=== PATIENT | female | born 1985 | race Caucasian/White ===

== ENCOUNTER 2016-05-02 07:45 | Inpatient (IN) | payer SELFPAY ==
[2016-05-02] MEDS ORDERED: NORMAL SALINE 10 ML SYRINGE FLUSH IVP PRN ×2 (08:01→13:35)
[2016-05-02] MEDS ORDERED: ONDANSETRON 4 MG/2 ML VIAL IVP ONE ×3 (08:01→09:54)
[2016-05-02] MEDS: Sodium Chloride 0.9% 1,000 ML PRIMARY IV ONE ×2 (08:07→12:08)
[2016-05-02] MEDS: HYDROmorphone 2 MG/1 ML IVP ONE ×4 (08:08→12:02)
[2016-05-02 08:19] LABS: BASOPHILS # (AUTO) 0.02 10*3/UL; BASOPHILS % (AUTO) 0.3 % (0-1); EOSINOPHILS % (AUTO) 0.8 % (0-8); HEMATOCRIT 47.1 % (37.0-47.0); HEMOGLOBIN 16.7 g/dL (12.0-16.0); IMM GRAN % (AUTO) 0.3 % (0-5); IMM GRAN# (AUTO) 0.02 10*3/UL; LYMPHOCYTES % (AUTO) 34.2 % (10-50); MEAN CORPUSCULAR HEMOGLOBIN 31.6 PG (27-31); MEAN CORPUSCULAR HGB CONC 35.5 g/dL (33-37); MEAN PLATELET VOLUME 10.5 FL (7.4-12.2); MONOCYTES # (AUTO) 0.56 10*3/UL (0.3-0.8); MONOCYTES % (AUTO) 9.1 % (5-15); NEUTROPHILS # (AUTO) 3.39 10*3/UL; NEUTROPHILS % (AUTO) 55.3 % (50-80); RDW COEFFICIENT OF VARIATION 12.9 % (11.5-14.5); RED BLOOD COUNT 5.29 10^6/uL (4.20-5.40); WHITE BLOOD COUNT 6.14 10^3/uL (4.8-10.8)
[2016-05-02 08:24] LABS: PLATELET MORPHOLOGY COMMENT NORMAL MORPHOLOGY (NORM)
[2016-05-02 08:27] LABS: AMYLASE 117 U/L (30-110); ASPARTATE AMINO TRANSFERASE 25 IU/L (8-39); BILIRUBIN,TOTAL 1.3 mg/dL (0.3-1.2); BLOOD UREA NITROGEN 14 mg/dL (7-22); CHLORIDE 102 meq/L (98-112); EST GLOMERULAR FILTRATION > 60 (>60 ml/min/1.73m(2)); GLUCOSE 151 mg/dL (78-110); SODIUM 139 meq/L (135-145)
--- NOTE | 2016-05-02 08:46 | PDOC ---
Abdomen/Flank HPI - General Chief Complaint: Abdomen Pain Stated Complaint: ABDOMINAL PAIN Date Seen by Provider: 05/02/16 Time Seen by Provider: 07:55 Source: POSITIVE: Patient Exam Limitations: POSITIVE: No limitations Nurse's Notes Reviewed & Considered: Yes - History of Present Illness Initial Comments: The patient is a 31-year-old female. She states that approximately 24 hours ago she developed some discomfort in the right lower quadrant. This pain became abruptly worse approximately one hour [employer]ING [employer]MENT. Patient had one episode of vomiting. She's had no known fevers. No diarrhea, melena, hematochezia, hematemesis, dysuria or hematuria. No history of previous abdominal surgery. Body Location Affected: REPORTS: Abdomen Timing: REPORTS: Abrupt (Abruptly worse in the past hour. Some discomfort for the past 24 hours.) Duration: 1 hour (As above) Severity: Severe Quality: REPORTS: "Pain" Abdominal Pain Onset Location: REPORTS: RLQ Abdominal Pain Radiation: REPORTS: No radiation Context: REPORTS: None Modifying Factors: improves with: Vomiting (Times one) Associated Symptoms: REPORTS: Nausea, Vomiting (Times one). DENIES: Denies symptoms, Back pain, Bloody Emesis, Chest pain, Coffee Grounds Emesis, Chills, Diaphoresis, Fever, Fatigue, Headache, Heartburn, Loss of Appetite, Rash, Shortness of breath, Swelling/mass in abdomen, Syncope, Testicular Pain, Weakness, Grossly Bloody Diarrhea, Constipation, Diarrhea, Dysuria, Incontinent Stool, Incontinent Urine, Mucous Diarrhea, Difficulty Walking, Dizziness, Light Headedness, Numbness, Other Similar Symptoms Previously: No Recent Care Received: REPORTS: Denies Any Prior Injuries Related to Current Complaint?: No - Patient Home Medications Home Medications: Home Medications NK [No Home Medications Reported] 05/02/16 - Patient Allergies Allergies/Adverse Reactions: Allergies Allergy/AdvReac Type Severity Reaction Status Date / Time hydrocodone AdvReac VOMITING Verified 05/02/16 07:51 Past Medical History - heen HEENT History: Denies History Cardiovascular History: Denies History Respiratory History: Denies History Gastrointestinal History: Denies History Genitourinary History: Denies History Endocrine History: Denies History Musculoskeletal History: Denies History Prosthesis or Implant: No Neurological History: Denies History Blood Disorders: Denies History Psychiatric History: Denies History History of Sexually Transmitted Diseases: No Female Reproductive History: Denies History LMP: 04/04/15 Obstetrical History: Denies History In Past Year Been Physically Harmed or Verbally Threatened: No History of MDRO: No History of Other Communicable Diseases: No Tobacco Use: Never Smoker Alcohol Use: Occasionally Substance Use Type: None Previous Surgical History: No Past Medical History Reviewed: Reviewed - No Changes ROS - Limitations ROS Limitations: No Limitations Constitution: REPORTS: Denies Symptoms Cardiovascular: REPORTS: Denies Cardiac Symptoms Respiratory: REPORTS: Denies Resp Symptoms Neurological: REPORTS: Denies Neuro Symptoms Gastrointestinal: REPORTS: Abdominal Pain, Nausea, Vomitting Endocrine: REPORTS: Denies Symptoms Musculoskeletal: REPORTS: Denies MS Symptoms Genitourinary: REPORTS: Denies Symptoms Eyes: REPORTS: Denies Symptoms ENT: REPORTS: Denies Symptoms Skin: REPORTS: Denies Skin Symptoms Lympathic: REPORTS: Denies Lympathic Symptoms Immunologic: POSITIVE: Denies Symptoms Psychiatric: POSITIVE: Denies Psych Symptoms Abdominal/Flank Pain PE - General Appearance General Appearance: POSITIVE: Alert, Cooperative, No Evidence of Trauma, Moderate Distress. NEGATIVE: No Acute Distress - HEENT HEENT: POSITIVE: Head Inspection Nml, Eyes Inspection Nml, Ears Inspection Nml, Nose Inspection Nml, Oral/Dental Inspect. Nml, Pharynx Inspect. Nml, PERRL, EOMI - Neck Neck: POSITIVE: Normal Inspection, No Apparent Injury - Respiratory Respiratory: POSITIVE: No Respiratory Distress, Breath Sounds Normal, Chest Non- Tender - Cardiovascular Cardiovascular: POSITIVE: Regular Rate and Rhythm, Heart Sounds Normal, Equal Pulses, Strong Pulses Peripheral Pulses: Radial (R): 2+, Radial (L): 2+ - Chest Chest: POSITIVE: Non Tender - Abdomen Abdomen: Soft: (All Quadrants), Normal Bowel Sounds: (All Quadrants), Denies Tenderness: (LLQ), (LUQ), (RUQ), No Splenomegaly: (All Quadrants), No Hepatomegaly: (All Quadrants), No Guarding: (All Quadrants), No Rebound: (All Quadrants), No Palpable Pulse: (All Quadrants), No Palpabale Mass: (All Quadrants), No Distention: (All Quadrants), No Rigidity: (All Quadrants), Tenderness Noted: (RLQ) - Back Back: POSITIVE: Normal Inspection - Skin Skin: POSITIVE: Intact, Normal For Race, Warm, Dry, No Rash - Extremities Extremity: Non-Tender: (All Extremities), Normal ROM: (All Extremities), Normal Inspection: (All Extremities) - Neurological Neurological: POSITIVE: Oriented X3, local coordinator Normal As Tested, Motor Normal, Sensation Normal, 5, 6 - Psychological Psychiatric: POSITIVE: Affect Appropriate, Mood Appropriate Images - Complete Complete: 1 - Area of pain Abdomen Progress - Results Reviewed by me Radiology Findings: CT scan abdomen and pelvis in progress Lab Results Reviewed: Yes (urinalysis pending) Lab Results:: Laboratory Results 05/02/16 Range/Units 08:07 WBC 6.14 (4.8-10.8) 10^3/uL RBC 5.29 (4.20-5.40) 10^6/uL Hgb 16.7 H (12.0-16.0) g/dL Hct 47.1 H (37.0-47.0) % MCV 89.0 (81-99) FL MCH 31.6 H (27-31) PG MCHC 35.5 (33-37) g/dL RDW Std Deviation 41.9 (39-50) fL RDW Coeff of Vasu 12.9 (11.5-14.5) % Plt Count 249 (140-350) 10*3/uL MPV 10.5 (7.4-12.2) FL Immature Gran % (Auto) 0.3 (0-5) % Neut % (Auto) 55.3 (50-80) % Lymph % (Auto) 34.2 (10-50) % Sharp % (Auto) 9.1 (5-15) % Eos % (Auto) 0.8 (0-8) % Baso % (Auto) 0.3 (0-1) % Immature Gran # (Auto) 0.02 10*3/UL Neut # (Auto) 3.39 10*3/UL Lymph # (Auto) 2.10 10*3/uL Sharp # (Auto) 0.56 (0.3-0.8) 10*3/UL Eos # (Auto) 0.05 10*3/UL Baso # (Auto) 0.02 10*3/UL WBC Morphology Comment Normal morphology (NORM) Plt Morphology Comment Normal morphology (NORM) RBC Morph Comment Normal morphology (NORM) Sodium 139 (135-145) meq/L Potassium 4.0 (3.8-5.2) meq/L Chloride 102 (98-112) meq/L Carbon Dioxide 23 (23-33) meq/L Anion Gap 14 (5-20) BUN 14 (7-22) mg/dL Creatinine 1.0 (0.50-1.20) mg/dL Estimated GFR > 60 (>60 ml/min/1.73m(2)) BUN/Creatinine Ratio 14.00 (6-20) Glucose 151 H (78-110) mg/dL Calculated Osmolality 291.0 (267-292) mOsm/kg Calcium 10.0 (8.7-10.7) mg/dL Total Bilirubin 1.3 H (0.3-1.2) mg/dL AST 25 (8-39) IU/L ALT 24 (9-52) IU/L Alkaline Phosphatase 70 (38-126) IU/L Total Protein 8.0 (6.1-8.0) g/dL Albumin 5.0 H (3.5-4.8) g/dL Globulin 3.0 (2.50-4.10) g/dL Albumin/Globulin Ratio 1.60 (1.3-2.0) mg/g Amylase 117 H (30-110) U/L Lipase 240 (23-300) IU/L Serum HCG, Qual Negative - Patient's Progress Pain Medication Addressed: POSITIVE: Yes (Patient given Dilaudid, 2 mg IV, with good pain relief) School/Work Release Addressed: POSITIVE: Not Applicable Re-examine Time: 08:45 Re-Examine Comment: Care transferred to , ER physician coming on duty. Status: POSITIVE: Improved, Worsened - Consult Counseled: POSITIVE: Patient, RE: Lab Results Patient Care Time - Estimated PCT Patient Care Time (In Minutes): 33 Vital Signs - Recent Vital Signs Vital Signs: Vital Signs (Last 8 hours) Temp Pulse Resp BP Pulse Ox 05/02/16 07:51 96.7 F L 62 12 134/93 99 - VS Reviewed Vital Signs Reviewed: Yes Discharge Clinical Impression: Abdominal pain Discharge Disposition: Other (Care transferred to Dr. Lara, ER physician coming on duty) Condition: Stable Care Transferred To: Dr. Lara, ER physician, [id number]
[2016-05-02] MEDS ORDERED: KETOROLAC 30 MG/1 ML VIAL IVP ONE (09:02)
--- NOTE | 2016-05-02 09:09 | PDOC ---
Transfer of Care - Care Accepted Time Care Transferred: 09:04 Report from Transferring Physician Received: Yes MDM / ED Course: Patient was evaluated, CT scan was ordered, and she received Dilaudid for pain which did improve somewhat. Review of her labs show urinalysis is still pending , CT report is pending, CBC is unremarkable, comprehensive metabolic panel was unremarkable. Home Medications: Home Medications NK [No Home Medications Reported] 05/02/16 Allergies/Adverse Reactions: Allergies hydrocodone Adverse Reaction (Verified 05/03/16 07:09) VOMITING Vital Signs Reviewed: Yes Nurse's Notes Reviewed & Considered: Yes - Pending Patient Care Items Pending Patient Care Items: POSITIVE: Labs, Pain Control, CT / MRI Results - Expected Patient Outcome Tentative Impression of Patient: Abdominal pain, differential diagnosis includes ovarian etiology, appendicitis, renal stones. Expected Disposition: POSITIVE: Home - Re-Evaluation of Patient Disposition of Patient: POSITIVE: Admitted Counseled: POSITIVE: Patient, RE: Lab Results, RE: Radiology Results, RE: DX Pending Test Results Documented: Yes Clinical Impression Documented: Yes (Abd pain, possible leuteal cyst.) - Results Reviewed Lab Results Reviewed by Me: Yes Lab Results: Laboratory Results 05/02/16 05/02/16 Range/Units 08:02 08:07 WBC 6.14 (4.8-10.8) 10^3/uL RBC 5.29 (4.20-5.40) 10^6/uL Hgb 16.7 H (12.0-16.0) g/dL Hct 47.1 H (37.0-47.0) % MCV 89.0 (81-99) FL MCH 31.6 H (27-31) PG MCHC 35.5 (33-37) g/dL RDW Std Deviation 41.9 (39-50) fL RDW Coeff of Vasu 12.9 (11.5-14.5) % Plt Count 249 (140-350) 10*3/uL MPV 10.5 (7.4-12.2) FL Immature Gran % (Auto) 0.3 (0-5) % Neut % (Auto) 55.3 (50-80) % Lymph % (Auto) 34.2 (10-50) % [place] % (Auto) 9.1 (5-15) % Eos % (Auto) 0.8 (0-8) % Baso % (Auto) 0.3 (0-1) % Immature Gran # (Auto) 0.02 10*3/UL Neut # (Auto) 3.39 10*3/UL Lymph # (Auto) 2.10 10*3/uL [place] # (Auto) 0.56 (0.3-0.8) 10*3/UL Eos # (Auto) 0.05 10*3/UL Baso # (Auto) 0.02 10*3/UL WBC Morphology Comment Normal morphology (NORM) Plt Morphology Comment Normal morphology (NORM) RBC Morph Comment Normal morphology (NORM) Sodium 139 (135-145) meq/L Potassium 4.0 (3.8-5.2) meq/L Chloride 102 (98-112) meq/L Carbon Dioxide 23 (23-33) meq/L Anion Gap 14 (5-20) BUN 14 (7-22) mg/dL Creatinine 1.0 (0.50-1.20) mg/dL Estimated GFR > 60 (>60 ml/min/1.73m(2)) BUN/Creatinine Ratio 14.00 (6-20) Glucose 151 H (78-110) mg/dL Calculated Osmolality 291.0 (267-292) mOsm/kg Calcium 10.0 (8.7-10.7) mg/dL Total Bilirubin 1.3 H (0.3-1.2) mg/dL AST 25 (8-39) IU/L ALT 24 (9-52) IU/L Alkaline Phosphatase 70 (38-126) IU/L Total Protein 8.0 (6.1-8.0) g/dL Albumin 5.0 H (3.5-4.8) g/dL Globulin 3.0 (2.50-4.10) g/dL Albumin/Globulin Ratio 1.60 (1.3-2.0) mg/g Amylase 117 H (30-110) U/L Lipase 240 (23-300) IU/L Serum HCG, Qual Negative Ur Collection Type Clean catch urine Urine Color Yellow Urine Clarity Clear (CLEAR) Urine pH 6.5 (5.0-8.5) Ur Specific [place] <=1.005 (1.005-1.030) Urine Protein Negative (NEG) mg/dl Urine Glucose (UA) Negative (NEG) mg/dL Urine Ketones 15 (NEG) Urine Occult Blood Negative (NEG) Urine Nitrate Negative (NEG) Urine Bilirubin Negative (NEG) Urine Urobilinogen 0.2 (0.2) EU/dL Ur Leukocyte Esterase Negative (NEG) Ur Culture Indicated? Culture not set - Consult Consult (If Yes, Name of Consulting MD & Time Called): Yes (Dr Mansfield, 12:15) Recommendations:: Admission. Patient Care Time - Estimated PCT Patient Care Time (In Minutes): 30 Vital Signs - VS Reviewed Vital Signs Reviewed: Yes Discharge Clinical Impression: Abdominal pain Discharge Disposition: Admit to Observation Condition: Stable Date Decision to Admit to Inpatient: 05/02/16 Time Decision to Admit to Inpatient: 12:16 (Dr. Mansfield admitting.)
--- NOTE | 2016-05-02 09:41 | DI ---
HISTORY: Sudden onset, severe right lower quadrant pain. COMPARISON: None available. TECHNIQUE: Contiguous axial images of the abdomen and pelvis were obtained and submitted for interpr etation. FINDINGS: Limited sections of the lung bases demonstrate no focal pulmonary mass. The liver, spleen, pancreas, gallbladder, both kidneys, and both adrenal glands demonstrate no acute findings. There is mild thickening of the GE junction. The stomach is partially collapsed. The aorta and IVC demonstrate no acute findings. The small bowel loops are not dilated. There is segmental thickening of the sigmoid colon which is f avored to be due to a phase of peristalsis although correlation with colonoscopy is recommended where appropriate. There is moderate constipation. There is no obstruction. There is no free air or tamela e fluid. The urinary bladder is partially distended. The uterus is anteverted, and the endometrium is thicken ed. There is a cystic hypodensity at the cervix measuring approximately 1.3 cm that would benefit from OB /CLEAT MAKER correlation. There are ill-defined opacities noted in both, cystic-appearing in nature, and measuring up to 5.3 cm on the right. These are favored to be ovarian in etiology, and correlation pelvic ultrasound is rec ommended. Tubo-ovarian abscesses and salpingitis in the differential. The appendix is not clearly visualized. The visualized osseous structures demonstrate no destructive abnormality. There are bilateral pars d efects at L5 without significant anterolisthesis. IMPRESSION: 1. There is mild thickening of the GE junction. The stomach is partially collapsed. 2. There is segmental thickening of the sigmoid colon which is favored to be due to a phase of perist alsis although correlation with colonoscopy is recommended where appropriate. There is moderate cons tipation. 3. The urinary bladder is partially distended. The uterus is anteverted, and the endometrium is thic kened. 4. There is a cystic hypodensity at the cervix measuring approximately 1.3 cm that would benefit from HYBRID TECHNOLOGIST correlation. 5. Ill-defined opacities are noted in both, cystic-appearing in nature, and measuring up to 5.3 cm on the right. These are favored to be ovarian in etiology, and correlation pelvic ultrasound is recomm ended. Tubo-ovarian abscesses and salpingitis is in the differential. 6. Bilateral pars defects at L5 without significant anterolisthesis.
[2016-05-02 11:26] LABS: BILIRUBIN,URINE NEGATIVE (NEG); CLARITY,URINE CLEAR (CLEAR); GLUCOSE, URINE (UA) NEGATIVE (NEG); LEUKOCYTE ESTERASE ,URINE NEGATIVE (NEG); NITRATE,URINE NEGATIVE (NEG); OCCULT BLOOD,URINE NEGATIVE (NEG); PH,URINE 6.5 (5.0-8.5); PROTEIN,URINE NEGATIVE (NEG); UROBILINOGEN,URINE 0.2 EU/dL (0.2)
[2016-05-02 11:28] LABS: URINE SAMPLE TYPE CLEAN CATCH URINE
--- NOTE | 2016-05-02 11:36 | DI ---
HISTORY: Right lower quadrant pain; onset 2 days prior. COMPARISON: None available. TECHNIQUE: Sonographic images of the pelvis were obtained and submitted for interpretation. 92 imag es. FINDINGS: The uterus measures 7.7 x 3.3 x 3.2 cm. The right ovary measures 7.8 x 3.9 x 6.0 cm. The left ovary measures 3.7 x 2.8 x 3.2 cm. The endometrium measures 4 mm in thickness. Normal arterial waveforms are noted in both ovaries. There is a small amount of free fluid noted. The uterus is anteverted. IMPRESSION: 1. The right ovary is enlarged. However, normal vascularity is present. NOTIFICATION: The above findings were phoned to Reji in the ER Department on 05/02/2016 at 01:39 PM EST. NOTE: The interpreting Radiologist was not present at the time of ultrasound interrogation.
--- NOTE | 2016-05-02 13:47 | PDOC ---
History and Physical - History of Present Illness History of Present Illness: 31 yo G0 presented to the ER this morning with acute RLQ abdominal pain. She states she had an episode last night night that got better, then started again this morning. Associated vomiting. Pain constant, stabbing. 12/28. Had an episode similar to this about a month ago, was seen by Dr. Avila (chiropractor) and treated for ileocecal dysfunction - b12, supplement and strict diet. This may have helped some. She notes some chills but denies fever, headache, vision changes, shortness of breath, palpitations, rash, dysuria, increased frequency. Has had diarrhea for a few days with restrictive diet. No constipation. Denies vaginal discharge or odor. Notes some vaginal pruritis - states very sensitive to soaps. Decreased appetite - ate cottage cheese and apple sauce yesterday, nothing today. LMP 04/04. Menses relatively regular, within 1-2 weeks. No history of significant dysmenorrhea. History of chlamydia infection 3 years ago at time of divorce, never tested for cure. No history of abdominal surgery. Treatment in ER included 4mg zofran total, 8 mg zofran IV, toradol 30mg IV, [address] done initially showed cystic hypodensity of cervix 1.3 cm, 5.3 cm cystic mass in RLQ concerning for TOA vs salpingitis. Appendix not well visualized. U/ s showed enlarged R ovary 7.8 x 3.9x6.0 cm with normal flow. WBC normal, CMP normal with mildly elevated bili, amylase. HCG negative. UA normal. Past Medical History Medical History: Hospitalized at 21 yo for PTSD, was treated with a sleeping medication and exercise. Chlamydia infection 3 years ago Surgical History: [place] teeth extraction Pertinent Family History: Father - DM, pancreatic cancer, HTN. Mother - HTN. Sister - RA, PCOS. Sister - ovarian cysts Past Social History: Occ etoh use, denies illicit drug use. Moved here from [place] recently, living with her sister and sister's family. Worked at a [employer] previously. Tobacco Use: Never Smoker Substance Use Type: None Alcohol Use: Occasionally Medication / Allergies Home Medications: Home Medications Medication Instructions Recorded Confirmed Type NK [No Home Medications Reported] 05/02/16 05/02/16 History Allergies/Adverse Reactions: Allergies Allergy/AdvReac Type Severity Reaction Status Date / Time hydrocodone AdvReac VOMITING Verified 05/02/16 13:53 Review of Systems - Review of Systems All Systems: Reviewed & No Additional Complaints Except as Stated - Constitutional Constitutional: REPORTS: General Health Excellent. DENIES: Fever/Chills, Diffuse Arthralgias - Integumentary Integumentary: DENIES: Rash - Eye Exam Eye Exam: DENIES: Blurring - Ear/Nose Exam Ear/Nose Exam: DENIES: Sinus Pain, Rhinorrhea, Congestion - Mouth/Throat Mouth/Throat Exam: DENIES: Sore Throat - Respiratory Respiratory: DENIES: Cough, Wheezing - Cardiovascular Cardiovascular: DENIES: Chest Pain, Palpitations - Gastrointestinal Gastrointestinal / Abdominal: REPORTS: Nausea, Vomiting, Diarrhea, Abdominal Pain. DENIES: Constipation - Genitourinary Genitourinary: DENIES: Burning, Urgency - Gynecological Gynecological: REPORTS: Pelvic Pain. DENIES: Vaginal Bleeding, Vaginal Discharge - Neurological Neurologic: DENIES: Headache, Weakness Exam - General General Appearance: POSITIVE: Cooperative, Mild Distress, Thin - Head Head Exam: POSITIVE: Normal Inspection - Eye Eye Exam: POSITIVE: Normal Appearance, EOMI, No Scleral Icterus. NEGATIVE: Conjuctival Injection - ENT ENT Exam: POSITIVE: Normal Exam, Mucous Membranes Moist - Respiratory Respiratory Exam: POSITIVE: Clear to Auscultation - Bilaterally, Breathing Non Labored - Cardiovascular Cardiovascular Exam: POSITIVE: RRR, No Murmur, No Clicks - GI/Abdominal GI/Abdominal Exam: POSITIVE: Soft, Guarding (off and on), Hypoactive Bowel Sounds. NEGATIVE: Rebound Additional GI/Abdominal Exam Details: TTP in RLQ, suprapubic - Extremities Extremities Exam: POSITIVE: Normal Inspection, Normal Capillary Refill, No Edema Present - Neurological Neurological Exam: POSITIVE: Alert, Oriented x 3 - Integumentary Integumentary Exam: POSITIVE: Normal Color Results - Labs CBC and BMP: 05/02/16 08:07 05/02/16 08:07 - Imaging Additional Imaging Details: CT abdomen/pelvis with contrast: 1. Mild thichening of GE jtn, stomach partially collapsed. 2. Segmental thickening of the sigmoid colon which is favored to be due to a phase of peristalsis although correlation with colonoscopy where appropriate. Mild constipatione. 3. Uterus anteverted and endometrium thickened. 4. cystic hypodensity at the cervix measuring 1.3 cm 5. ill-defined opacities, cystic in nature measuring up to 5.3 cm on R. Corelate with u/s - TOA and salpingitis on differential 6. Bilateral pars defects at L5 w/o significant anterolishesis Pelvic u/s R ovary is enlarged. However normal vascularity present. Small amt of free fluid. Assessment and Plan - Patient Problems (1) RLQ abdominal pain Current Visit: Yes Status: Acute Support Text: 31 yo with RLQ pain, likely hemorrhagic corpus luteum. CT with 5.3 cm cystic mass in RLQ, appx not well visualized. U/s showed enlarged R ovary 7.8x3.9x6.0cm , with normal flow. Normal WBC, vitals stable. Admit to obs for pain control as not well controlled in ER even with toradol, dilaudid, zofran. -Dilaudid 1-2mg iv q4h prn, toradol 30mg iv q6h, tylenol 1000mg po q8h prn - transition to po pain control as possible -Zofran for nausea -Close monitoring for changes in abdominal exam, vitals, etc. -Repeat cbc,cmp,amylase/lipase in am -Check urine CT/GC FEN-NS 125cc/hr, Clear liquid diet, advance as tolerated PPX - ambulation Dispo - anticipate d/c home tomorrow if pain controlled
[2016-05-02] MEDS ORDERED: NORMAL SALINE 100 ML IV SCH (14:15)
[2016-05-02] MEDS: KETOROLAC 30 MG/1 ML VIAL IVP PRN (14:54)
[2016-05-02] MEDS: HYDROmorphone 2 MG/1 ML IVP PRN ×2 (14:54→20:05)
[2016-05-02] MEDS: Sodium Chloride 0.9% 1,000 ML PRIMARY IV SCH ×2 (14:55→21:42)
[2016-05-02] MEDS: ONDANSETRON 4 MG/2 ML VIAL IVP PRN ×2 (16:19→21:42)
[2016-05-02] MEDS: HYDROcodone-APAP 5 MG -325 MG TABLET PO PRN (21:41)
[2016-05-03] MEDS: HYDROcodone-APAP 5 MG -325 MG TABLET PO PRN ×3 (01:35→07:49)
[2016-05-03 01:36] VITALS: RESP 18
[2016-05-03] MEDS: KETOROLAC 30 MG/1 ML VIAL IVP PRN ×3 (04:00→16:45)
[2016-05-03] MEDS: Sodium Chloride 0.9% 1,000 ML PRIMARY IV SCH ×3 (05:15→16:51)
[2016-05-03 06:24] LABS: BASOPHILS # (AUTO) 0.02 10*3/UL; BASOPHILS % (AUTO) 0.2 % (0-1); EOSINOPHILS % (AUTO) 0.1 % (0-8); HEMATOCRIT 36.9 % (37.0-47.0); HEMOGLOBIN 12.6 g/dL (12.0-16.0); IMM GRAN % (AUTO) 0.1 % (0-5); IMM GRAN# (AUTO) 0.01 10*3/UL; LYMPHOCYTES % (AUTO) 21.5 % (10-50); MEAN CORPUSCULAR HEMOGLOBIN 31.3 PG (27-31); MEAN CORPUSCULAR HGB CONC 34.1 g/dL (33-37); MEAN PLATELET VOLUME 10.7 FL (7.4-12.2); MONOCYTES # (AUTO) 0.89 10*3/UL (0.3-0.8); MONOCYTES % (AUTO) 9.6 % (5-15); NEUTROPHILS # (AUTO) 6.37 10*3/UL; NEUTROPHILS % (AUTO) 68.5 % (50-80); RDW COEFFICIENT OF VARIATION 12.7 % (11.5-14.5); RED BLOOD COUNT 4.03 10^6/uL (4.20-5.40)
[2016-05-03 06:29] LABS: AMYLASE 123 U/L (30-110); ASPARTATE AMINO TRANSFERASE 18 IU/L (8-39); BILIRUBIN,TOTAL 0.7 mg/dL (0.3-1.2); BLOOD UREA NITROGEN 8 mg/dL (7-22); BUN/CREATININE RATIO 8.88 (6-20); CALCIUM 8.6 mg/dL (8.7-10.7); CHLORIDE 108 meq/L (98-112); CREATININE 0.9 mg/dL (0.50-1.20); EST GLOMERULAR FILTRATION > 60 (>60 ml/min/1.73m(2)); GLUCOSE 100 mg/dL (78-110); POTASSIUM 4.1 meq/L (3.8-5.2); SODIUM 140 meq/L (135-145); TOTAL PROTEIN 6.1 g/dL (6.1-8.0)
[2016-05-03 06:40] LABS: PLATELET MORPHOLOGY COMMENT NORMAL MORPHOLOGY (NORM)
[2016-05-03] MEDS: POLYETHYLENE GLYCOL 3350 17 GM POWDER PO SCH ×2 (07:54→11:14)
[2016-05-03] MEDS: HYDROmorphone 2 MG/1 ML IVP PRN (10:59)
[2016-05-03] MEDS: oxyCODONE-ACETAMINOPHEN 5-325 TAB PO PRN ×2 (11:17→15:11)
--- NOTE | 2016-05-03 12:58 | CONSULT ---
Consult Note - Consult Consult Date: 05/03/16 Reason for Consult: Other (Pancreatitis) Requesting Physician: bashir Primary Care Provider: NONE NONE History and Physical - History of Present Illness History of Present Illness: This a very nice 31-year-old female who was seen in the ER for right lower quadrant pain admitted by Dr. Mansfield for possible oral area and cyst on CT scan its 5.3 cm cystic mass in the right lower quadrant today hospitalist service was consulted for elevated lipase. Patient used to drink she states when she was but has not had any drinks lately usually she drinks only 3 glasses of wine once a week. Past Medical History Medical History: Hospitalized at 21 yo for PTSD, was treated with a sleeping medication and exercise. Chlamydia infection 3 years ago Surgical History: Wagoner teeth extraction Pertinent Family History: Father - DM, pancreatic cancer, HTN. Mother - HTN. Sister - RA, PCOS. Sister - ovarian cysts Past Social History: Occ etoh use, denies illicit drug use. Moved here from [place] recently, living with her sister and sister's family. Worked at a [employer] previously. Tobacco Use: Never Smoker Substance Use Type: None Alcohol Use: Occasionally Review of Systems - Review of Systems All Systems: Reviewed & No Additional Complaints Except as Stated - Constitutional Constitutional: DENIES: Fever/Chills, Night Sweats, Fatigue - Integumentary Integumentary: DENIES: Negative System Review, Rash, Superficial Wound, Laceration, Puncture Wound, Foreign Body, Itching, Dryness, Ulcers, Color Changes, Moles, Hair Loss, Hirsutism, Other, See HPI - Respiratory Respiratory: DENIES: Negative System Review, Cough, Sputum, Dyspnea At Rest, Dyspnea with Exertion, Pleuritic Pain, Hemoptysis, Wheezing, Other, See HPI - Gastrointestinal Gastrointestinal / Abdominal: REPORTS: Abdominal Pain. DENIES: Negative System Review, Nausea, Vomiting, Diarrhea, Constipation, Bloody Stool, Poor Appetite, Heartburn, Regurgitation, Bloating, Lactose Intolerance, Melena, Bright Red Blood Per Rectum, Other, See HPI - Genitourinary Genitourinary: DENIES: Negative System Review, Pain, Burning, Hematuria, Incontinence, Urgency, Hesitant Stream, Decreased Stream, Nocutria, Discharge, Sexual Dyfunction, Other, See HPI Medication / Allergies Home Medications: Home Medications Medication Instructions Recorded Confirmed Type NK [No Home Medications Reported] 05/02/16 05/03/16 History Allergies/Adverse Reactions: Allergies Allergy/AdvReac Type Severity Reaction Status Date / Time hydrocodone AdvReac VOMITING Verified 05/03/16 07:09 Exam - Vitals Vital Signs: Vital Signs Temperature 98.8 F Temperature Source Temporal Artery Scan Pulse Rate [Pulse Oximeter] 52 Respiratory Rate 18 Blood Pressure [Left Arm] 116/72 Pulse Ox 99 Oxygen Delivery Method Room Air Height 5 ft 4 in Weight 65.408 kg - General General Appearance: POSITIVE: No Acute Distress, Cooperative - Head Head Exam: POSITIVE: Normal Inspection - Eye Eye Exam: POSITIVE: Normal Appearance, PERRL, EOMI - Neck Neck Exam: POSITIVE: Normal Inspection - Respiratory Respiratory Exam: POSITIVE: Clear to Auscultation - Bilaterally, Breathing Non Labored, Normal To Percussion, Normal to Percussion and Palpation - Cardiovascular Cardiovascular Exam: POSITIVE: RRR, No Murmur, No Clicks, No Gallops - GI/Abdominal Additional GI/Abdominal Exam Details: Right lower quadrant pain there is no pain whatsoever on the left side upper or lower quadrant - Extremities Extremities Exam: POSITIVE: No Clubbing Present, No Edema Present, No Cyanosis Present Results - Labs CBC and BMP: 05/03/16 06:09 05/03/16 06:09 Labs - Last 24 Hours: Laboratory Results 05/03/16 Range/Units 06:09 WBC 9.30 (4.8-10.8) 10^3/uL RBC 4.03 L (4.20-5.40) 10^6/uL Hgb 12.6 (12.0-16.0) g/dL Hct 36.9 L (37.0-47.0) % MCV 91.6 (81-99) FL MCH 31.3 H (27-31) PG MCHC 34.1 (33-37) g/dL RDW Std Deviation 41.3 (39-50) fL RDW Coeff of Vasu 12.7 (11.5-14.5) % Plt Count 193 (140-350) 10*3/uL MPV 10.7 (7.4-12.2) FL Immature Gran % (Auto) 0.1 (0-5) % Neut % (Auto) 68.5 (50-80) % Lymph % (Auto) 21.5 (10-50) % [place] % (Auto) 9.6 (5-15) % Eos % (Auto) 0.1 (0-8) % Baso % (Auto) 0.2 (0-1) % Immature Gran # (Auto) 0.01 10*3/UL Neut # (Auto) 6.37 10*3/UL Lymph # (Auto) 2.00 10*3/uL [place] # (Auto) 0.89 H (0.3-0.8) 10*3/UL Eos # (Auto) 0.01 10*3/UL Baso # (Auto) 0.02 10*3/UL WBC Morphology Comment Normal morphology (NORM) Plt Morphology Comment Normal morphology (NORM) RBC Morph Comment Normal morphology (NORM) Sodium 140 (135-145) meq/L Potassium 4.1 (3.8-5.2) meq/L Chloride 108 (98-112) meq/L Carbon Dioxide 24 (23-33) meq/L Anion Gap 8 (5-20) BUN 8 (7-22) mg/dL Creatinine 0.9 (0.50-1.20) mg/dL Estimated GFR > 60 (>60 ml/min/1.73m(2)) BUN/Creatinine Ratio 8.88 (6-20) Glucose 100 (78-110) mg/dL Calculated Osmolality 287.0 (267-292) mOsm/kg Calcium 8.6 L (8.7-10.7) mg/dL Total Bilirubin 0.7 (0.3-1.2) mg/dL AST 18 (8-39) IU/L ALT 23 (9-52) IU/L Alkaline Phosphatase 41 (38-126) IU/L Total Protein 6.1 (6.1-8.0) g/dL Albumin 3.6 (3.5-4.8) g/dL Globulin 2.5 (2.50-4.10) g/dL Albumin/Globulin Ratio 1.40 (1.3-2.0) mg/g Amylase 123 H (30-110) U/L Lipase 456 H (23-300) IU/L Assessment and Plan - Patient Problems (1) Elevated lipase Current Visit: Yes Status: Acute Comment: This could definitely represent pancreatitis mild as since she was pretty heavy drinker in the past. I will order an MR I of her abdomen and pancreas looking for calcifications or any duct if this does not give us an answer I will order an ultrasound of her gallbladder as well this can definitely be translocated inflammatory process from what is going on in her ovaries and uterus I discussed this with the patient and Dr. Mansfield also went over her CAT scan results and Dr. Mansfield will consult Dr. britt Burton for possible EGD colonoscopy if needed for now nothing by mouth IV fluids at 125 an hour (2) Elevation of serum amylase level with elevation of serum lipase level Current Visit: Yes Status: Acute
--- NOTE | 2016-05-03 14:37 | PDOC(PROG) ---
Interval History: Pain somewhat improved this morning, she was transitioned to po pain meds last night - hydrocodone/apap 5/325 1-2 po q4h prn. She was able to eat some cream of rice last night but noted increased abdominal pain and nausea. Objective : Data - Labs CBC and BMP: 05/03/16 06:09 05/03/16 06:09 Labs - Last 24 Hours: Laboratory Results 05/03/16 05/03/16 Range/Units 05:00 06:09 WBC 9.30 (4.8-10.8) 10^3/uL RBC 4.03 L (4.20-5.40) 10^6/uL Hgb 12.6 (12.0-16.0) g/dL Hct 36.9 L (37.0-47.0) % MCV 91.6 (81-99) FL MCH 31.3 H (27-31) PG MCHC 34.1 (33-37) g/dL RDW Std Deviation 41.3 (39-50) fL RDW Coeff of Vasu 12.7 (11.5-14.5) % Plt Count 193 (140-350) 10*3/uL MPV 10.7 (7.4-12.2) FL Immature Gran % (Auto) 0.1 (0-5) % Neut % (Auto) 68.5 (50-80) % Lymph % (Auto) 21.5 (10-50) % [place] % (Auto) 9.6 (5-15) % Eos % (Auto) 0.1 (0-8) % Baso % (Auto) 0.2 (0-1) % Immature Gran # (Auto) 0.01 10*3/UL Neut # (Auto) 6.37 10*3/UL Lymph # (Auto) 2.00 10*3/uL [place] # (Auto) 0.89 H (0.3-0.8) 10*3/UL Eos # (Auto) 0.01 10*3/UL Baso # (Auto) 0.02 10*3/UL WBC Morphology Comment Normal morphology (NORM) Plt Morphology Comment Normal morphology (NORM) RBC Morph Comment Normal morphology (NORM) Sodium 140 (135-145) meq/L Potassium 4.1 (3.8-5.2) meq/L Chloride 108 (98-112) meq/L Carbon Dioxide 24 (23-33) meq/L Anion Gap 8 (5-20) BUN 8 (7-22) mg/dL Creatinine 0.9 (0.50-1.20) mg/dL Estimated GFR > 60 (>60 ml/min/1.73m(2)) BUN/Creatinine Ratio 8.88 (6-20) Glucose 100 (78-110) mg/dL Calculated Osmolality 287.0 (267-292) mOsm/kg Calcium 8.6 L (8.7-10.7) mg/dL Magnesium 2.0 (1.6-2.4) mg/dL Total Bilirubin 0.7 (0.3-1.2) mg/dL AST 18 (8-39) IU/L ALT 23 (9-52) IU/L Alkaline Phosphatase 41 (38-126) IU/L Total Protein 6.1 (6.1-8.0) g/dL Albumin 3.6 (3.5-4.8) g/dL Globulin 2.5 (2.50-4.10) g/dL Albumin/Globulin Ratio 1.40 (1.3-2.0) mg/g Amylase 123 H (30-110) U/L Lipase 456 H (23-300) IU/L Objective : Exam - General General Appearance: No Acute Distress, Cooperative - Head Head Exam: Normal Inspection - Eye Eye Exam: Normal Appearance - Respiratory Respiratory Exam: Clear to Auscultation - Bilaterally, Breathing Non Labored - Cardiovascular Cardiovascular Exam: RRR, No Murmur - GI/Abdominal GI/Abdominal Exam: Soft, Hypoactive Bowel Sounds Additional GI/Abdominal Exam Details: TTP in RLQ, suprapubic. No rebound or guarding. No epigastric or upper abdominal pain with palpation. - Extremities Extremities Exam: Normal Inspection, No Edema Present - Neurological Neurological Exam: Alert, Oriented x 3 - Psychiatric Psychiatric Exam: Normal Affect, Normal Mood - Integumentary Integumentary Exam: Normal Color Additional Integumentary Exam Details: many tattoos Assessment and Plan - Patient Problems (1) RLQ abdominal pain Current Visit: Yes Status: Acute Support Text: GC/CT negative. Again still likely hemorrhagic corpus luteum. Dr. Galo consulted, she will f/u with him in 2-4 weeks in the office for a repeat u/s. Pain control - goal being po pain control that she can manage at home. (2) Pancreatitis Current Visit: Yes Status: Acute Support Text: Elevated lipase and amylase this morning. CT abdomen did not show any pathology with the pancreas. NPO this morning. Dr. Perry was additionally consulted and ordered an MRI, results pending. (3) GE junction thickening on CT Current Visit: Yes Status: Acute Support Text: Discussed with Dr. Mccrary, patient to f/u with him as an outpatient for evaluation of possible EGD/colonoscopy.
[2016-05-03] MEDS: ONDANSETRON 4 MG/2 ML VIAL IVP PRN (15:11)
--- NOTE | 2016-05-03 15:21 | DI ---
MRI ABDOMEN W/WO CN,05/03/2016 1:17 PM: Clinical History: Elevated lipase. Previous Exam: CT abdomen pelvis performed May 02, 2016 Findings: Multiplanar MR images are obtained through the abdomen both before and after the intravenous administ ration of 14 mL of OptiMARK gadolinium contrast. The lung bases are clear. The spleen, adrenals, kidneys and pancreas are unremarkable. There is no ab normal enhancement. Visualized portions of the liver and gallbladder are unremarkable. Skeletal structures are unremarkable. The bowel is not well evaluated. Visualized portions of the hea rt and aorta are normal. Impression: No evidence of pancreatic mass. No evidence of peripancreatic fat stranding.
[2016-05-03 16:33] VITALS: TEMP 97.4
--- NOTE | 2016-05-03 18:46 | DI ---
US ABDOMEN LIMITED,05/03/2016 5:17 PM: Clinical History: Evaluate gallbladder. Previous Exam: None at this facility. Findings: Multiple grayscale and color Doppler sonographic images are obtained through the right upper quadrant , and demonstrate a normal-appearing gallbladder without stones. Common bile duct measured 4 mm. Right kidney measures 10.0 cm in length with a normal appearance. Hepatic parenchyma is normal. Visualized portions of the pancreas are also normal. Impression: Normal right implant ultrasound.
--- NOTE | 2016-05-04 09:29 | DCSUMMARY ---
Hospitalization Summary Admit Date: 05/02/16 Discharge Date: 05/03/16 Primary Diagnosis:: RLQ pain, ovarian cyst Secondary Diagnosis:: Pancreatitis Hospital Course: 31 yo female that presented to the ER with acute onset RLQ pain. Workup included a CT that most notable for 5.3 cm RLQ cystic mass. Pelvic u/s showed an enlarged R ovary with normal vascularity. Pain control was not adequate even with IV toradol, dilaudid and zofran so patient was admitted to the hospital for pain control. She transitioned to po pain medications overnight, but am labs were notable for an elevated amylase and lipase. CT the day before showed a normal pancreas. Dr. Perry, Hospitalist, was consulted and he ordered an MRI of the abdomen w/wo contrast to evaluate the pancreas (especially given family h /o her father dying of pancreatic cancer). The MRI was normal, no e/o mancreatic mass or peripancreatic fat stranding. A f/u RUQ u/s was ordered to fully evaluate the gall bladder - the common bile duct was normal size, no gall stones appreciated. Dr. Galo OBGYQuyen was consulted, after reviewing imaging and evaluating the patient, he thought this was most likely a hemorrhagic corpus luteum and recommended f/u with him in office in 2 weeks. In the evening she felt her pain control was adequate with oral percocet and was adamant about discharge given her status of being uninsured. I recommended she stay the night, continue with npo, then we could be sure her pain was well controlled and see how she did with advancing her diet prior to discharge. She was confident that she could manage at home and insistent on discharge. Exam - Vitals Vital Signs: Vital Signs Temperature 97.4 F Temperature Source Temporal Artery Scan Pulse Rate [Pulse Oximeter] 64 Respiratory Rate 18 Blood Pressure [Left Arm] 129/78 Pulse Ox 100 Oxygen Delivery Method Room Air Height 5 ft 4 in Weight 144 lb 3.2 oz - General General Appearance: POSITIVE: No Acute Distress - Head Head Exam: POSITIVE: Normal Inspection - Eye Eye Exam: POSITIVE: Normal Appearance - Neck Neck Exam: POSITIVE: Normal Inspection - Respiratory Respiratory Exam: POSITIVE: Clear to Auscultation - Bilaterally - Cardiovascular Cardiovascular Exam: POSITIVE: RRR, No Murmur - GI/Abdominal GI/Abdominal Exam: POSITIVE: Soft. NEGATIVE: Guarding, Rebound Additional GI/Abdominal Exam Details: TTP in RLQ, suprapubic - Extremities Extremities Exam: POSITIVE: No Edema Present - Neurological Neurological Exam: POSITIVE: Alert, Oriented x 3 - Psychiatric Psychiatric Exam: POSITIVE: Normal Affect, Normal Mood, Anxious - Integumentary Integumentary Exam: POSITIVE: Normal Color Data Perinent Studies: Per Radiologist Reads: CT Abdomen and Pelvis with contrast - 1. Mild thickening of the GE junction. Stomach is partially collapsed. 2. Segmental thickening of the sigmoid colon which is favored to be due to a phase of peristalsis although correlation with colonoscopy is recommended where appropriate. Moderate constipation. 3. Bladder is partially distended. Uterus is anteverted, and the endometrium is thickened. 4. Cystic hypodensity at the cervix measuring approx 1.3 cm that would benefit from OBGYN correlation. 5. Ill-defined opacities are noted in bty, cystic-appearing in nature, and measuring up to 5.3 cm con kevin R. These are favored to be ovarian in etiology and correlation with pelvic u/s is recommened. TOA and salpingitis is in the differential. 6. B/l pars defects at L5 w/o significant anterolisthesis. US pelvic 1. R ovary is enlarged. However normal vascularity is present MRI abdomen w/wo contrast No e/o pancreatic mass. No e/o peripancreatic fat stranding. RUQ U/s: Normal RUQ u/s. No gall stones, normal appearing gallbladder. Common bile duct measured 4 mm. Patient Problems - Patient Problem List (1) RLQ abdominal pain Status: Acute Support Text: Likely hemorrhagic corpus luteum cyst. Pain control with po percocet and zofran. F/u with Dr. Galo in clinic on 05/18, plan for repeat u/s at that visit. (2) Pancreatitis Status: Acute Support Text: Unclear etiology as imaging revealed normal gall bladder, pancreas. She does have a history of heavier drinking 3 years prior, although does not illicit a story of heavy etoh use as of recent. Triglycerides were to be checked the next day, would recommend checking these as an outpatient. (3) GE junction thickening on CT Status: Acute Support Text: CT showed mild thickening of the GE Junction, segmental thickening of the sigmoid colon. Case was discussed with Dr. Mccrary, General Surgeon, he recommended outpatient f/u. She will be scheduled in his clinic for consideration of EGD/colonoscopy.
== END 2016-05-03 19:55 | disposition home or self-care (01) | DRG 760 ==
LOC: ER 07:45 → MED/SURG 12:50 → OBSVTOIN 13:47 → INTOOBSV 13:47 → OBSVTOIN 05-03 13:47 → UNDODISIN 05-03 19:55
PROVIDERS: ADMIT Student in an Organized Health Care Education/Training Program; ATTEND Student in an Organized Health Care Education/Training Program
DX: N83.201 Unspecified ovarian cyst, right side (principal); K85.90 Acute pancreatitis without necrosis or infection, unspecified; R10.31 Right lower quadrant pain
CPT/HCPCS: 36415; 74177; 74183; 76705; 76830; 80053; 81003; 82150; 83690; 83735; 84703; 85025; 87491; 87591; 94761; 96361; 96374; 96375; 96376; 99285; A9579; J1170; J1885; J2405; J7030